=== PATIENT | male | born 1960 ===

== ENCOUNTER 2018-09-13 14:33 | Emergency (ER) | payer OTHER, BC ==
[2018-09-13 14:59] VITALS: BP 129/87; PULSE 79; RESP 18; TEMP 98.2; O2SAT 98
[2018-09-13] MEDS ORDERED: Tdap Vaccine 0.5 ml Vial (10-64 yrs) IM ONE ×2 (15:11→15:27)
[2018-09-13] MEDS ORDERED: Lidocaine 1% Inj (20ml) INFIL ONE (15:12)
--- NOTE | 2018-09-13 15:20 | ED PDOC ---
Upper Extremity Pain/Injury Time Seen by Provider: 09/13/18 15:11 Chief Complaint (Nursing): Abnormal Skin Integrity Chief Complaint (Provider): Right Thumb Laceration History Per: Patient History/Exam Limitations: no limitations Onset/Duration Of Symptoms: Hrs (x2) Current Symptoms Are (Timing): Still Present Additional Complaint(s): 58 year old male presents to the ED for evaluation of a right thumb injury that occurred two hours prior to arrival on a ceramic tile. Denies other injury. Tetanus not up to date PMD: none provided Past Medical History Reviewed: Historical Data, Nursing Documentation, Vital Signs Vital Signs: Last Vital Signs Temp 98.2 F 09/13/18 14:57 Pulse 79 09/13/18 14:57 Resp 18 09/13/18 14:57 BP 129/87 09/13/18 14:57 Pulse Ox 98 09/13/18 14:57 Primary Care Provider: Kandi Lou - Medical History PMH: Bronchitis - Family History Family History: States: Unknown Family Hx - Home Medications Home Medications: Ambulatory Orders Medication Instructions Recorded Acetaminophen with Codeine 1 tab PO Q6H PRN #15 tab 06/26/16 [Tylenol with Codeine No. 3 300 mg-30 mg] Cephalexin [Keflex] 500 mg PO TID #15 capsule 09/13/18 - Allergies Allergies/Adverse Reactions: Allergies Allergy/AdvReac Type Severity Reaction Status Date / Time vancomycin Allergy RASH Verified 09/13/18 14:57 Review of Systems ROS Statement: Except As Marked, All Systems Reviewed And Found Negative Skin: Positive for: Other (laceration on right thumb) Physical Exam - Reviewed Nursing Documentation Reviewed: Yes Vital Signs Reviewed: Yes - Physical Exam Appears: Positive for: No Acute Distress Skin: Positive for: Normal Color, Warm Cardiovascular/Chest: Positive for: Regular Rate, Rhythm Respiratory: Positive for: Normal Breath Sounds. Negative for: Respiratory Distress Pulses-Radial (L): 2+ Pulses-Radial (R): 2+ Extremity: Positive for: Normal ROM (able to flex and extend right first digit without difficulty), Capillary Refill (less than 2 seconds), Other (2cm flap- like laceration on volar surface of distal right first digit) Neurological/Psych: Negative for: Motor/Sensory Deficits - ECG O2 Sat by Pulse Oximetry: 98 (RA) Pulse Ox Interpretation: Normal Medical Decision Making Medical Decision Making: Time: 1511 Initial Impression: right thumb laceration Initial Plan: --Tetanus booster --Keflex 500mg PO --Lidocaine 1% 1ml INJ --------- -------- ScribeAttestation: Documented byDarling Ramsey acting as a scribe for Saige Aquino PA-C. Provider ScribeAttestation: All medical record entries made by the Scribe were at my direction and personally dictated by me. I have reviewed the chart and agree that the record accurately reflects my personal performance of the history, physical exam, medical decision making, and the department course for this patient. I have also personally directed, reviewed, and agree with the discharge instructions and disposition. Disposition - Clinical Impression Clinical Impression: Finger laceration - Patient ED Disposition Is Patient to be Admitted: No - Disposition Disposition: Routine/Home Disposition Time: 16:03 Condition: FAIR Additional Instructions: RETURN TO ED/URGENT CARE /OR PMD IN 7 DAYS FOR REMOVAL OF SUTURES Prescriptions: Cephalexin [Keflex] 500 mg PO TID #15 capsule Instructions: Laceration Repair With Stitches (DC) Forms: [facility] ED School/Work Excuse Procedure: Wound Repair - Time Performed Time Performed: 16:02 - Time Out Time Out: Site verified - Consent Obtained Consent obtained: Verbal - Performed by Performed by: Mid-level Provider - Indications Indication(s):: Laceration - Location Location:: Right, Hand Finger:: Right, Thumb Shape:: Curvilinear Dimensions Length cm: 2.0 CM Depth:: Epidermis - Anesthetic Technique Anesthetic Technique: Regional block Local/Regional Anesthetic:: Lidocaine 1% - Debris Debris:: None - Irrigated Irrigated with ml of normal saline: 250ML NORMAL SALINE - Complexity Complexity:: Simple (one layer) - Wound repair method Sutures:: # (THREE), Size (4-0), Type (PROLENE), Technique (INTERRUPTED) - Muscle repiar layer closed with Muscle repair layer closed with:: Abx ointment applied, Dressing applied, Tetanus ordered - Patient tolerated procedure Patient Tolerated Procedure:: Well
== END 2018-09-13 16:18 | disposition home or self-care (01) ==
LOC: H.ER 14:33
DX: S61.011A Laceration without foreign body of right thumb without damage to nail, initial encounter (principal); Z23 Encounter for immunization; W26.8XXA Contact with other sharp object(s), not elsewhere classified, initial encounter